=== PATIENT | male | born 1960 | race African-American/Black ===

== ENCOUNTER 2017-06-01 20:07 | Emergency (ER) | payer SELFPAY ==
[~2017-06-01] VITALS: Ht 185.4 cm; Wt 82.0 kg
[2017-06-02 03:30] VITALS: BP 133/81
[2017-06-02] MEDS ORDERED: BACITRACIN ZINC OINT UDPKT TOP ONE (03:30)
[2017-06-02] MEDS ORDERED: LIDOCAINE HCL 1% 20ML VIAL (Pyxis) INJ MC ONE (03:30)
[2017-06-02] MEDS ORDERED: KETOROLAC 30MG/ML VIAL IM ONE (03:30)
[2017-06-02] MEDS ORDERED: CEFTRIAXONE SODIUM 1 G/VIAL IM ONE (03:30)
[2017-06-02] MEDS ORDERED: TETANUS, DIPHTHERIA, PERTUSSIS VAC/PF 0.5ML (>7YR OLD) IM ONE (03:30)
== END 2017-06-02 03:45 | disposition home or self-care (01) ==
LOC: ER 20:07
DX: S71.152A Open bite, left thigh, initial encounter (principal); F17.200 Nicotine dependence, unspecified, uncomplicated; W54.0XXA Bitten by dog, initial encounter; Y93.9 Activity, unspecified; Y92.89 Other specified places as the place of occurrence of the external cause; Y99.8 Other external cause status
CPT/HCPCS: 90471; 90715; 96372; 99284; J0696; J1885; J3490; Z7610